=== PATIENT | male | born 1965 | race Two or more races ===

== ENCOUNTER 2016-07-06 23:22 | Emergency (ER) | payer OTHER ==
--- NOTE | ~2016-07-06 | CR72 ---
[facility] A Service of [facility] RADIOLOGY TEXT RESULTS PATIENT: DIMITRIS BRAUN LOCATION: [facility] : 63 UNIT #: [id number] AGE: [address]: Edy Elam MD SEX: M ORDER DR: [id number] [id number] [facility] [place], [place] [address] [id number] E MR#: [id number] Acc #: [id number] NAME: DIMITRIS BRAUN : 1965 SEX: M STUDY DATE/TIME: 07/06/2016 22:55 UNIT: [facility] ROOM: STUDY DESCRIPTION: CR Chest Single View Portable Attending Physician: Edy Elam M.D. Ordering Physician: Edy Elam M.D. Primary Care Physician: Juan Arango M.D. MEDICAL IMAGING REPORT This report is preliminary unless electronic signature is present EXAM AP portable chest. DATE OF EXAM 07/06/2016, 22:55. HISTORY Right-sided chest pain for 1 month with cough and shortness of breath. COMPARISON CT chest, 06/17/2016, PA and lateral chest, 06/16/2006. FINDINGS Chronic-appearing interstitial thickening is present in the lung bases. No acute airspace disease. Heart size is within normal limits. No pleural effusion or pneumothorax. IMPRESSION No acute cardiopulmonary findings. Chronic-appearing interstitial changes in the lung bases. Dictated by... Corina Horton M.D. THIS IS AN ELECTRONICALLY VERIFIED REPORT Corina Horton M.D. at 07/07/2016 10:47 PM NAVEED/laura TD: 07/07/2016 18:48 JOB #: [id number] MEDICAL IMAGING REPORT [facility] A Service [facility] RADIOLOGY TEXT RESULTS PATIENT: DIMITRIS BRAUN LOCATION: [facility] : 63 UNIT #: [id number] AGE: [address]: Edy Elam MD SEX: M ORDER DR: COPY
--- NOTE | ~2016-07-06 | CT16 ---
[facility] A Service of [facility] RADIOLOGY TEXT RESULTS PATIENT: DIMITRIS BRAUN LOCATION: [facility] : 63 UNIT #: [id number] AGE: [address]: Edy Elam MD SEX: M ORDER DR: [id number] [facility] [address] [place], [place] [address] [id number] E MR#: [id number] [facility] #: [id number] NAME: DIMITRIS BRAUN : 1965 SEX: M STUDY DATE/TIME: 07/07/2016 1:03 UNIT: [facility] ROOM: STUDY DESCRIPTION: CT Angio Chest for PE Attending Physician: Edy Elam M.D. Ordering Physician: Edy Elam M.D. Primary Care Physician: Juan Arango M.D. MEDICAL IMAGING REPORT This report is preliminary unless electronic signature is present EXAM CTA chest, PE protocol. DATE OF EXAM 07/07/2016 HISTORY 50-year-old male with cough for 4 weeks, chest pain greatest on the mid to left side. Nausea. Hurts when taking a breath. COMPARISON CTA chest, PE protocol, 06/17/2016. AP portable chest, 07/06/2016 at 22:55. PROCEDURE 2 mm axial images through the chest after IV contrast administration. 3-D coronal and MIP reformatted images were obtained. TECHNIQUE NOTE: This CT exam was performed with one or more of the following radiation dose reduction techniques: automatic exposure control, adjustment of mA and/or kV according to patient size, and iterative reconstruction. FINDINGS No pulmonary embolism, aortic aneurysm or aortic dissection. Previously described mildly prominent left hilar lymph node is stable measuring 1.3 x 2.3 cm on today's examination. Coronary artery calcifications are present. No pericardial effusion or pleural effusion. Heart size within normal limits. Faint peribronchiolar infiltrates are present within the left upper lobe with a somewhat tree-in-bud nodular distribution peripherally. There is [facility] A Service of [facility] RADIOLOGY TEXT RESULTS PATIENT: DIMITRIS BRAUN [id number] [birth year] UNIT #: [id number] AGE: [address]: Edy Elam MD SEX: M ORDER DR: some band-like atelectasis or scarring within the right middle lobe and lingula. Mild atelectasis has developed in the medial left lower lobe. Previously described right upper lobe airspace disease has resolved. Stable 5 mm noncalcified nodule in the subpleural right lower lobe (series 6, image 123) compared to CT abdomen and pelvis from 12/04/2012, in keeping with benign finding, no further followup is warranted with respect to this nodule. 8 mm hypervascular lesion in the medial left hepatic segment, unchanged, likely representing benign findings such as a small flash-filled hemangioma. Bilateral renal cysts. Remainder of the included upper abdominal organs are normal. No acute osseous abnormalities are identified. IMPRESSION 1. No pulmonary embolism. No thoracic aortic aneurysm or aortic dissection. 2. Faint peribronchiolar infiltrates within the left upper lobe are present, but appear improved when compared to the 06/07/2016 study. There is some new mild atelectasis in the posterior medial left lower lobe. 3. 5 mm pleural-based nodule in the right lower lobe is unchanged from 12/04/2012. This is consistent with a benign finding and no further follow up is warranted. 4. Stable subcentimeter hypervascular lesion left hepatic lobe. Benign etiology such as flash-filled hemangioma is favored. 5. No acute osseous abnormality. 6. Bilateral renal cysts. Dictated by... Corina Horton M.D. THIS IS AN ELECTRONICALLY VERIFIED REPORT Corina Horton M.D. at 07/07/2016 10:46 PM JSUTIN/laura TD: 07/07/2016 21:47 JOB #: [id number] MEDICAL IMAGING REPORT COPY
--- NOTE | ~2016-07-06 | EKG ---
PATIENT: DIMITRIS BRAUN UNIT #: [id number] Ventricular Rate: 55 BPM Atrial Rate: 55 BPM P-R Interval: 196 ms QRS Duration: 84 ms Q-T Interval: 430 ms QTC Calculation(Bezet): 411 ms P Ruskin: 52 degrees Calculated R Ruskin: 1 degrees Calculated T Ruskin: 44 degrees Diagnosis Line: Sinus bradycardia Diagnosis Line: Otherwise normal ECG Diagnosis Line: Diagnosis Line: Confirmed by DELROY BLANDON MD ([id number]) on Diagnosis Line: 07/09/2016 12:02:32 AM INTERPRETING MD: BARBER CADET
[~2016-07-06 23:22] MED LIST: AMOXICILLIN875 MG PO; AXID150 M1; AXID150 M1 PO; AZITHROMYCIN250 MG PO; B/P MED; BACTRIM DS TABL1 TA1 PO; CIPRO PO; COLACE50 MG PO; FLAGYL PO; NAPROSYN500 MG PO; PREDNISONE PO; PRILOSEC40 MG PO; TEKTURNA HCT 301 TAB PO; TEKTURNA PO; TENORMIN50 MG PO; ULTRAM PO; [UNRECOGNIZED DRUG - OTHER]
[2016-07-06 23:53] LABS: BASOPHIL# 0.1 X10e3 (0-0.3); EOSINOPHIL# 0.6 X10e3 (0-0.7); EOSINOPHIL% 6.5 % (0.0-7.0); HEMATOCRIT 42.7 % (38.0-50.0); HEMOGLOBIN 14.6 gm/dL (13.0-16.0); LYMPHOCYTE# 3.8 X10e3 (1.0-3.5); LYMPHOCYTE% 43.2 % (17.0-45.0); MEAN CELL VOLUME 85.3 FL (83-96); MEAN CORPUSCULAR HEMOGLOBIN 29.2 PG (28-34); MEAN CORPUSCULAR HGB CONC 34.2 g/dL (30-36); MONOCYTE# 0.7 X10e3 (0-1.0); MONOCYTE% 7.7 % (3.0-12.0); NEUTROPHIL# 3.6 X10e3 (1.5-7.1); NEUTROPHIL% 41.6 % (40-75); PLATELET COUNT 174 X10e3 (140-420); RED CELL DISTRIBUTION WIDTH 14.7 % (11.0-15.5); WHITE BLOOD COUNT 8.8 X10e3 (4.0-10.5)
[2016-07-06 23:55] LABS: DIFF IND NO
[2016-07-07 00:06] LABS: PARTIAL THROMBOPLASTIN TIME 26.1 SECONDS (23.5-31.3); PROTHROMBIN TIME (PATIENT) 10.4 SECONDS (9.6-11.5)
[2016-07-07 00:14] LABS: POC - CKMB 1.8 ng/mL (0.0-7.9); POC - TROPONIN <0.05 ng/mL (<=0.05)
[2016-07-07 00:24] LABS: ALKALINE PHOSPHATASE 82 U/L (32-92); ALT (SGPT) 27 U/L (10-40); AST (SGOT) 20 U/L (10-42); BILIRUBIN, DIRECT 0.1 mg/dL (0.0-0.2); BILIRUBIN,INDIRECT 0.6 mg/dL (0.0-0.9); BILIRUBIN,TOTAL 0.7 mg/dL (0.2-2.0); BLOOD UREA NITROGEN 23 mg/dL (9-23); BUN/CREATININE RATIO 25.55; CALCIUM SERUM 8.7 mg/dL (8.4-10.2); CARBON DIOXIDE 23 mmol/L (22-31); CHLORIDE 106 mmol/L (100-111); CREATININE SERUM 0.9 mg/dL (0.6-1.4); GLOM FILT RATE Estimated ABOVE60 mL/min (>60); GLUCOSE FASTING 114 mg/dL (70-110); POTASSIUM 3.8 mmol/L (3.5-5.1); PROTEIN TOTAL SERUM 7.1 g/dL (6.0-8.3); SODIUM 138 mmol/L (135-145)
== END 2016-07-07 01:45 | disposition home or self-care (01) ==
LOC: CED 23:22
PROVIDERS: Emergency Medicine
DX: R05 Cough (principal); R09.1 Pleurisy; I10 Essential (primary) hypertension; Z79.899 Other long term (current) drug therapy
CPT/HCPCS: 36415; 71010; 71275; 80048; 80076; 82553; 84484; 85025; 85610; 85730; 93005; 94640; 96374; 96375; 99284; J1885; J2930; Q9967

== ENCOUNTER 2016-07-19 20:52 | Emergency (ER) | payer OTHER ==
--- NOTE | ~2016-07-19 | EKG ---
PATIENT: DIMITRIS BRAUN UNIT #: [id number] Ventricular Rate: 61 BPM Atrial Rate: 61 BPM P-R Interval: 194 ms QRS Duration: 86 ms Q-T Interval: 412 ms QTC Calculation(Bezet): 414 ms P [place]: 43 degrees Calculated R [place]: -8 degrees Calculated T [place]: 35 degrees Diagnosis Line: Normal sinus rhythm Diagnosis Line: Normal ECG Diagnosis Line: Diagnosis Line: Confirmed by KRISTI MISTRY MD ([id number]) on 07/23/2016 Diagnosis Line: 10:41:30 PM INTERPRETING MD: FEDE CADET
--- NOTE | ~2016-07-19 | CR72 ---
[facility] A Service of [facility] RADIOLOGY TEXT RESULTS PATIENT: DIMITRIS BRAUN LOCATION: [facility] : 63 UNIT #: [id number] AGE: [address]: Suzi Mchugh APRN SEX: M ORDER DR: [id number] [facility] [address] [place], [place] [address] [id number] E MR#: [id number] Acc #: [id number] NAME: DIMITRIS BRAUN. : 1965 SEX: M STUDY DATE/TIME: 07/19/2016 20:03 UNIT: [facility] ROOM: STUDY DESCRIPTION: CR Chest Single View Portable Attending Physician: Suzi Mchugh A.P.R.N. Ordering Physician: Suzi Mchugh A.P.R.N. Primary Care Physician: Juan Arango M.D. MEDICAL IMAGING REPORT This report is preliminary unless electronic signature is present EXAM Portable chest x-ray, 07/19/2016 HISTORY Cough, short of air chest and back pain duration 2 months. COMPARISON Chest radiograph 07/06/[address] 07/07/2016. No acute bony abnormality. There is stable mild thoracic scoliosis. Stable mild cardiac enlargement. The lungs are well inflated. Linear densities left lower lung zone unchanged from prior examination and felt to reflect either persistent atelectasis or areas of chronic scarring. There is no compelling evidence of acute infectious or inflammatory disease. No pleural effusion or pneumothorax and no suspicious nodule. Dictated by... Ryland Ochoa M.D. THIS IS AN ELECTRONICALLY VERIFIED REPORT Ryland Ochoa M.D. at 07/20/2016 8:05 PM CE/flynn TD: 07/20/2016 03:49 JOB #: [id number] MEDICAL IMAGING REPORT Page 1 of 1 COPY
[2016-07-19 20:52] LABS: POC - CKMB 2.2 ng/mL (0.0-7.9); POC - TROPONIN <0.05 ng/mL (<=0.05)
[2016-07-19 20:55] LABS: BASOPHIL% 0.5 % (0-2.5); EOSINOPHIL# 0.3 X10e3 (0-0.7); EOSINOPHIL% 4.2 % (0.0-7.0); HEMOGLOBIN 14.8 gm/dL (13.0-16.0); LYMPHOCYTE# 2.5 X10e3 (1.0-3.5); LYMPHOCYTE% 30.7 % (17.0-45.0); MEAN CELL VOLUME 85.4 FL (83-96); MEAN CORPUSCULAR HEMOGLOBIN 28.7 PG (28-34); MEAN CORPUSCULAR HGB CONC 33.6 g/dL (30-36); MEAN PLATELET VOLUME 8.8 FL (6.5-11.5); MONOCYTE# 0.7 X10e3 (0-1.0); MONOCYTE% 8.5 % (3.0-12.0); NEUTROPHIL# 4.5 X10e3 (1.5-7.1); NEUTROPHIL% 56.1 % (40-75); PLATELET COUNT 177 X10e3 (140-420); RED BLOOD COUNT 5.15 X10e (3.90-5.60); RED CELL DISTRIBUTION WIDTH 14.5 % (11.0-15.5); WHITE BLOOD COUNT 8.1 X10e3 (4.0-10.5)
[2016-07-19 20:56] LABS: DIFF IND NO
[2016-07-19 21:13] LABS: INFLUENZA A NEG (NEG); INFLUENZA B NEG (NEG)
[2016-07-19 21:21] LABS: BILIRUBIN, DIRECT 0.1 mg/dL (0.0-0.2); BILIRUBIN,INDIRECT 0.7 mg/dL (0.0-0.9); BILIRUBIN,TOTAL 0.8 mg/dL (0.2-2.0); CALCIUM SERUM 8.9 mg/dL (8.4-10.2); CREATININE SERUM 0.8 mg/dL (0.6-1.4); GLOM FILT RATE Estimated 103.5 mL/min (>60); POTASSIUM 3.6 mmol/L (3.5-5.1); PROTEIN TOTAL SERUM 6.9 g/dL (6.0-8.3)
== END 2016-07-19 21:40 | disposition home or self-care (01) ==
LOC: CFTX 20:52
PROVIDERS: Nurse Practitioner
DX: R07.89 Other chest pain (principal); J06.9 Acute upper respiratory infection, unspecified; I10 Essential (primary) hypertension
CPT/HCPCS: 36415; 71010; 80048; 80076; 82553; 84484; 85025; 87804; 93005; 94640; 96361; 96374; 96375; 99284; J1885; J2405